=== PATIENT | male | born 1990 | race Two or more races ===

== ENCOUNTER 2018-09-18 05:42 | Emergency (ER) | payer SELFPAY ==
[~2018-09-18] VITALS: Ht 160 cm; Wt 77.1 kg
[2018-09-18] MEDS ORDERED: METOCLOPRAMIDE HCL 5MG/ml INJ 2ml VIAL IV ONE (08:00)
[2018-09-18] MEDS ORDERED: KETOROLAC TROMETH 15 mg/ml 1ML VL IV ONE (08:00)
[2018-09-18] MEDS ORDERED: SODIUM CHLORIDE 0.9% 1,000 ML IVB ONE (08:01)
[2018-09-18 08:08] LABS: Basophils # (auto) 0 uL; Basophils % (auto) 0.2 % (0.0-2.0); Eosinophils # (auto) 0 uL; Hematocrit 45.6 % (41.0-53.0); Hemoglobin 16.1 g/dL (13.5-17.5); Lymphocytes # (auto) 1.2 uL; Lymphocytes % (auto) 8.2 % (10.0-50.0); Mean Corpuscular Hemoglobin 31.4 pg (28.0-32.0); Mean Corpuscular Hgb Conc. 35.4 g/dL (32.0-36.0); Mean Corpuscular Volume 88.9 fL (80.0-100.0); Monocytes # (auto) 0.5 uL; Monocytes % (auto) 3.4 % (0.0-12.0); Neutrophils # (auto) 12.9 uL; Neutrophils % (auto) 88.2 % (37.0-80.0); Platelet Count (auto) 246 10^3/uL (140-450); Red Blood Cells 5.12 10^6/uL (4.5-5.90); Red Cell Distribution Width 12.4 % (11.8-14.3); White Blood Cell 14.7 10^3/uL (4.4-10.8)
[2018-09-18 08:15] LABS: Albumin 4.3 g/dL (3.4-5.0); BUN/Creatinine Ratio 9.4; Potassium 3.5 mmol/L (3.5-5.1)
[2018-09-18] MEDS ORDERED: TAMSULOSIN HYDROCHLORIDE 0.4 MG CAP PO ONE (08:15)
[2018-09-18 08:18] LABS: Bilirubin, Total 0.3 mg/dL (0.2-1.0); Total Protein 8.2 g/dL (6.4-8.2)
[2018-09-18 10:15] LABS: Urine Bacteria NONE SEEN /hpf (None Seen); Urine Blood 1+ /uL (Negative); Urine Mucus FEW (None Seen); Urine Specific Gravity 1.031 (1.001-1.035); Urine WBC 7 /hpf (0 - 3)
[2018-09-18 11:09] VITALS: BP 107/65
== END 2018-09-18 11:09 | disposition home or self-care (01) ==
LOC: ER 05:42
DX: N20.1 Calculus of ureter (principal); N13.30 Unspecified hydronephrosis; N20.2 Calculus of kidney with calculus of ureter; Z88.0 Allergy status to penicillin
CPT/HCPCS: 36415; 74176; 80053; 81001; 82150; 83690; 85025; 96374; 96375; 99284; J1885; J2765; J7030